=== PATIENT | female | born 1980 | race Caucasian/White ===

== ENCOUNTER → 2019-09-06 12:54 | Outpatient (CLI) | payer BC, SELFPAY ==
--- NOTE | ~2019-09-06 | US_ITS ---
EXAMINATION: US breast LT limited HISTORY: Six-month follow-up for probably benign left breast masses TECHNIQUE: Targeted left breast ultrasound is performed. FINDINGS: Again seen are two adjacent oval hypoechoic masses at the 2:00 location 6 cm from the nippl e. Both demonstrate slight interval decrease in size, consistent with a benign finding. No suspicious cystic or solid mass is identified. IMPRESSION: Left breast masses with decrease in size, consistent with benign findings. Recommend routine clinical follow-up and screening mammography beginning at age 40. BI-RADS Category 2: Benign finding(s). Reviewed, dictated and finalized at location A. IMPRESSION: Left breast masses with decrease in size, consistent with benign findings. Ray mmend routine clinical follow-up and screening mammography beginning at age 40. BI-RADS Category 2: Benign finding(s).
== END ==
PROVIDERS: Visit Provider Obstetrics & Gynecology
DX: N63.20 Unspecified lump in the left breast, unspecified quadrant (principal)
CPT/HCPCS: 76642

== ENCOUNTER 2020-08-11 18:31 | Emergency (ER) | payer BC, SELFPAY ==
[2020-08-11 18:49] VITALS: BP 148/86; PULSE 94; RESP 18; TEMP 37.6; O2SAT 100
--- NOTE | 2020-08-11 19:10 | ED.FEMALEGU ---
HPI - Female Genitourinary General Chief complaint: Urogenital-Female Stated complaint: uti Source: patient and RN notes reviewed Mode of arrival: ambulatory History of Present Illness HPI Narrative: This is a 39-year-old female that presented to urgent care with complaints of painful urination, blood in her urine, lower back pain and frequent urination. Patient does have a history of urinary tract infection. She did take [id number] Azo for her painful urination. Patient UA was positive for urinary tract infection. The patient denies SOB, CP, palpitation, extremity numbness, lightheadedness, dizziness, constipation, diarrhea, vaginal bleeding or discharge, genital rash, , STDs chills, or fever. MD elicited complaint: dysuria and UTI Related Data Home Medications Medication Instructions Recorded Confirmed desog-e.estradiol/e.estradiol 1 tablet DAILY 08/11/20 08/11/20 [Volnea (28)] Allergies Allergy/AdvReac Type Severity Reaction Status Date / Time No Known Allergies Allergy Verified 09/28/16 15:49 Review of Systems Review of Systems: Narrative: A 14 organ system Review of Systems was performed and pertinent positives included in the HPI, otherwise remaining ROS is negative. [facility] Family History Family History (Updated 08/11/20 @ 19:20 by LOW Shen) Other Family history non-contributory Social History Social History Gender identity (if verbalized by the patient): Female Exam Narrative: Exam Narrative: GENERAL: This is a well-nourished, well-developed patient, in no apparent distress. HEAD: normocephalic, atraumatic. EYES: PERRL. Sclera clear/white. Vision is grossly intact. EARS: External ears normal, auditory canals clear and without drainage, TMs normal without perforation. Hearing grossly intact. NOSE: External nose normal with no obvious nasal discharge, nares without redness, no rhinorrhea. THROAT: Mucous membranes moist, posterior pharynx clear. NECK: Neck supple, non-tender without lymphadenopathy, masses or thyromegaly. CARDIOVASCULAR: Regular rate and rhythm without murmurs, gallops, or rubs. RESPIRATORY: Clear to auscultation. Breath sounds equal bilaterally. No wheezes, rales, or rhonchi. GASTROINTESTINAL: Abdomen soft, non-tender, nondistended. Bowel sounds are active. No hepato-splenomegaly, or palpable masses. No guarding. SKIN: warm, intact with no suspicious lesions or rash, good texture and turgor. NEURO: awake, alert, and oriented to person, place and time. There were no obvious focal neurologic abnormalities. Steady gait EXTREMITIES: Normal range of motion. No edema. No calf tenderness. Negative Homans sign bilaterally. BACK: Nontender without deformity or crepitance. No flank tenderness. Course Course Emergency Course: Patient given Bactrim to treat urinary tract infection Vital Signs Vital signs: Vital Signs Temperature 99.7 F H 08/11/20 18:49 Pulse Rate 94 08/11/20 18:49 Respiratory Rate 18 08/11/20 18:49 Blood Pressure 148/86 H 08/11/20 18:49 Pulse Oximetry 100 08/11/20 18:49 Temperature 99.7 F H 08/11/20 18:49 Pulse Rate 94 08/11/20 18:49 Respiratory Rate 18 08/11/20 18:49 Blood Pressure 148/86 H 08/11/20 18:49 Pulse Oximetry 100 08/11/20 18:49 MDM - Female Genitourinary Differential Diagnosis Differential diagnosis: Likely urinary tract infection and vaginitis Lab Data Attestation: I reviewed the patient's lab results. Lab results narrative: Positive for urinary tract infection culture sent off Labs: Urine Glucose Trace Reference Range: Negative Urine Bilirubin Negative Reference Range: Negative Urine Ketone Negative Reference Range: Negative Urine Specific [place] 1.010
== END 2020-08-11 19:18 | disposition home or self-care (01) ==
PROVIDERS: Emergency Provider Nurse Practitioner; PCP Internal Medicine
DX: N39.0 Urinary tract infection, site not specified (principal)
CPT/HCPCS: 81003; 87077; 87086; 87088; 87186; 99213; G0463

== ENCOUNTER 2023-06-22 14:43 | Outpatient (CLI) | payer BC, SELFPAY ==
--- NOTE | ~2023-06-22 | MM_ITS ---
EXAMINATION: MM screening samantha BI w rick HISTORY: Screening mammogram TECHNIQUE: Craniocaudal and mediolateral oblique 3-D tomosynthesis images were obtained and synthetic 2-D images were generated. Bilateral rotated lateral CC views. CAD analysis was submitted and interp reted. COMPARISON: 09/06/2019 limited left breast ultrasound examination 01/17/2019 CT bilateral diagnostic mammogram and limited left breast ultrasound examination BREAST PARENCHYMAL COMPOSITION: The breasts are extremely dense, which lowers the sensitivity of mamm ography. FINDINGS: There are possible bilateral breast masses. There is question of architectural distortion i n the upper outer left breast. Bilateral diagnostic mammography and breast ultrasound examination are recommended IMPRESSION: 1. Suggestion bilateral breast masses and possible upper outer left breast architectural distortion 2. Bilateral diagnostic mammography and complete bilateral breast ultrasound examination is recommend ed BI-RADS Category 0: Incomplete: Needs additional imaging evaluation. Reviewed, dictated and finalized at location A. IMPRESSION: 1. Suggestion bilateral breast masses and possible upper outer left breast arch itectural distortion 2. Bilateral diagnostic mammography and complete bilateral breast ultrasound ex amination is recommended BI-RADS Category 0: Incomplete: Needs additional imaging evaluation.
== END 2023-06-22 14:44 ==
LOC: MICIMG 14:44
PROVIDERS: PCP Obstetrics & Gynecology; Visit Provider Obstetrics & Gynecology
DX: Z12.31 Encounter for screening mammogram for malignant neoplasm of breast (principal); R92.8 Other abnormal and inconclusive findings on diagnostic imaging of breast
CPT/HCPCS: 77063; 77067

== ENCOUNTER 2023-07-30 08:14 | Outpatient (CLI) | payer BC, SELFPAY ==
--- NOTE | ~2023-07-30 | MMUS_ITS ---
EXAMINATION: MM diagnostic samantha BI w rick, US breast RT limited HISTORY: Possible bilateral breast masses TECHNIQUE: Additional spot compression 3-D tomosynthesis images of the bilateral breasts were perform ed and synthetic 2-D images were generated. CAD analysis was submitted and interpreted. High resoluti on upper, outer right breast ultrasound was performed. COMPARISON: 06/22/2023, 01/17/2019 FINDINGS: MAMMOGRAPHIC FINDINGS: Breast parenchyma is extremely dense. Spot compression views demonstrate a persistent low-density cir cumscribed ovoid mass at the upper, outer right breast measuring 1.5 cm in diameter. There is a benig n lymph node at the 12:00 position left breast. No suspicious focal calcific lesions evident. ULTRASOUND: At the 10:00 position right breast, 6 aneurysm in the palm, there is a 1.3 x 0.7 x 1.3 cm anechoic ci rcumscribed wider than tall cyst, with posterior through transmission. There is an additional adjacen t 1.1 x 1.0 x 0.9 cm cyst, with similar imaging characteristics. At the 12:00 position of the right b reast, 5 cm from the nipple, there is an additional 1.1 cm simple cyst. At the 11:00 position right b reast, 4 cm from the nipple, there is an additional 0.9 cm simple cyst. IMPRESSION: No findings which are suspicious for malignancy. Multiple breast cysts at the upper, outer right breast, as detailed above. Benign lymph node of the 1 2:00 position left breast. BI-RADS Category 2: Benign finding(s). Reviewed, dictated and finalized at location . IMPRESSION: No findings which are suspicious for malignancy. Multiple breast cysts at the upper, outer right breast, as detailed above. Tyler gn lymph node of the 12:00 position left breast. BI-RADS Category 2: Benign finding(s).
== END 2023-07-30 08:15 ==
LOC: MICIMG 08:15
PROVIDERS: PCP Obstetrics & Gynecology; Visit Provider Obstetrics & Gynecology
DX: R92.8 Other abnormal and inconclusive findings on diagnostic imaging of breast (principal); N60.01 Solitary cyst of right breast
CPT/HCPCS: 76642; 77062; 77066; G0279

== ENCOUNTER 2023-10-30 11:47 | Outpatient (CLI) | payer BC, SELFPAY ==
--- NOTE | ~2023-10-30 | US_ITS ---
Pelvic ultrasound. Clinical History: Irregular menses Technique: Realtime transvaginal scanning of the pelvis was performed. Color flow Doppler and Doppler spectral analysis were performed. Findings: The uterus is anteverted. The endometrial stripe has a thickness of 10 mm. There is an ovo id echogenic masslike structure in the endometrial stripe measuring 0.9 x 0.5 x 0.8 cm. The right ovary measures 2.9 x 1.8 x 2.1 cm. No significant right ovarian or adnexal mass is seen. The left ovary measures 3.2 x 2.1 x 2.2 cm. No significant left ovarian or adnexal mass is seen. There is no evidence of free fluid in the cul de sac. Impression: 0.9 x 0.5 x 0.8 cm ovoid hyperechoic mass at the endometrial stripe, suggestive of endometrial polyp. Reviewed, dictated and finalized at [facility]. Impression: 0.9 x 0.5 x 0.8 cm ovoid hyperechoic mass at the endometrial stripe, suggestive of endometrial polyp.
== END 2023-10-30 11:48 ==
LOC: MICIMG 11:47
PROVIDERS: PCP Internal Medicine Endocrinology, Diabetes & Metabolism; Visit Provider Internal Medicine Endocrinology, Diabetes & Metabolism
DX: N92.6 Irregular menstruation, unspecified (principal); R93.89 Abnormal findings on diagnostic imaging of other specified body structures
CPT/HCPCS: 76830

== ENCOUNTER 2024-12-13 08:47 | Outpatient (CLI) | payer BC, SELFPAY ==
--- NOTE | ~2024-12-13 | MM_ITS ---
EXAMINATION: MM screening samantha BI w rick HISTORY: Screening TECHNIQUE: Craniocaudal and mediolateral oblique 3-D tomosynthesis images were obtained and synthetic 2-D images were generated. CAD analysis was submitted and interpreted. COMPARISON: 01/17/2019 BREAST PARENCHYMAL COMPOSITION: The breasts are extremely dense, which lowers the sensitivity of mammography. FINDINGS: There is no evidence of suspicious mass, calcification, or architectural distortion to suggest malignancy. There has been no suspicious interval change. IMPRESSION: 1. No mammographic evidence of malignancy. Recommend routine screening mammography in one year. BI-RADS Category 2: Benign finding(s) Reviewed, dictated and finalized at location Q. IMPRESSION: 1. No mammographic evidence of malignancy. Recommend routine screening mammogra phy in one year. BI-RADS Category 2: Benign finding(s)
== END 2024-12-13 08:48 | disposition home or self-care (01) ==
LOC: MICIMG 08:48
PROVIDERS: PCP Internal Medicine Endocrinology, Diabetes & Metabolism; Visit Provider Obstetrics & Gynecology
DX: Z12.31 Encounter for screening mammogram for malignant neoplasm of breast (principal)
CPT/HCPCS: 77063; 77067